=== PATIENT | male | born 1960 | race Caucasian/White ===

== ENCOUNTER 2019-05-15 23:37 | Emergency (ER) | payer BC ==
--- NOTE | 2019-05-15 23:54 | PDOC ---
History of Present Illness <Ashleigh Biswas - Last Filed: 05/16/19 00:20> - General History Source: Patient, Spouse Exam Limitations: No Limitations - History of Present Illness Initial Comments: 05/15/19 23:52 59yo M with PMH of LAURYN AJAY for R arm numbness and weakness. Per , pt went to take a shower and at approximately 2245 pt stated that he had numbness in his R arm and felt cold. He has not had symptoms like this before. states that she did not notice facial droop but noticed some slurring of words. He did not fall or lose consciousness. Was able to ambulate but felt unsteady. She called EMS. He only takes Nexium. Not on AC, no recent head injury or bleed, no recent surgeries other than colonoscopy a few months ago. No history of GI bleed , not on AC. PMD: PMH: see hpi PSH: appendectomy Meds: Nexium Allergies: nkda Social: 05/16/19 00:40 <Tianna Agarwal - Last Filed: 05/16/19 00:45> - General Chief Complaint: CVA/TIA Stated Complaint: RULE OUT CVA Time Seen by Provider: 05/15/19 23:39 Past History <Ashleigh Biswas - Last Filed: 05/16/19 00:20> <Tianna Agarwal - Last Filed: 05/16/19 00:45> - Past Medical History Allergies/Adverse Reactions: Allergies Allergy/AdvReac Type Severity Reaction Status Date / Time No Known Allergies Allergy Verified 05/15/19 23:58 Home Medications: Ambulatory Orders NK [No Known Home Medication] 05/15/19 Review of Systems - Review of Systems Constitutional: Yes: Chills HEENTM: No: Eye Pain, Double Vision Respiratory: No: Symptoms reported Cardiac (ROS): No: Symptoms Reported ABD/GI: No: Symptoms Reported : No: Symptoms Reported Musculoskeletal: Yes: See HPI Integumentary: No: Symptoms Reported Neurological: Yes: See HPI, Numbness, Weakness, Unsteady Gait. No: Headache, Dizziness <Tianna Agarwal - Last Filed: 05/16/19 00:45> *Physical Exam - Vital Signs Last Vital Signs Temp Pulse Resp BP Pulse Ox 98.6 F 77 18 160/95 100 05/15/19 23:40 05/15/19 23:40 05/15/19 23:40 05/15/19 23:40 05/15/19 23:40 <Ashleigh Biswas - Last Filed: 05/16/19 00:20> - Physical Exam General Appearance: Yes: Nourished, Appropriately Dressed. No: Apparent Distress HEENT: positive: EOMI, ALBERT, Pharynx Normal Neck: positive: Trachea midline, Supple. negative: Carotid bruit Respiratory/Chest: positive: Lungs Clear, Normal Breath Sounds Cardiovascular: positive: Regular Rhythm, Regular Rate, S1, S2. negative: Edema , JVD, Murmur, Systolic Murmur Vascular Pulses: Dorsalis-Pedis (R): 2+, Doralis-Pedis (L): 2+ Gastrointestinal/Abdominal: positive: Normal Bowel Sounds, Soft Musculoskeletal: negative: CVA Tenderness Extremity: positive: Normal Capillary Refill. negative: Pedal Edema, Swelling, Calf Tenderness Integumentary: positive: Normal Color, Dry, Warm Neurologic: positive: Fully Oriented, Alert, Normal Mood/Affect, Normal Response , Facial Droop, Sensory Deficit (R sided sensory deficit). negative: [facility] II- XII NML intact, Motor Strength 5/5 (R side drift against gravity), Finger to Nose (dysmetria on R side. ), Confused, Disoriented <Tianna Agarwal - Last Filed: 05/16/19 00:45> NIH Stroke Scale - Last Known Well Date/Time & Onset Date Last Known Well: 05/15/19 Time Last Known Well: 22:45 - Initial Evaluation Level of consciousness: Alert Ask patient the month and their age: Answers both correctly Ask patient to open & close eyes; make fist and let go: Obeys both correctly Best gaze (horizontal eye movement): Normal Visual field testing: No visual field loss Facial paresis (Show teeth/raise eyebrows/close eyes tight): Minor paralysis ( flattened nasolabial fold, asymmetry on smiling) Motor Function: Left Arm: Normal Motor Function: Right Arm: Drift Motor Function: Left Leg: Normal (extends leg 30 degrees for 5 seconds without drift) Motor Function: Right Leg: Drift Limb Ataxia: Present in two limbs Sensory(Use pinprick test arms,legs,trunk,face/side to side): Severe to total sensory loss Best language (Describe picture, name items, read sentences): No Aphasia Dysarthria (read several words): Mild to moderate slurring of words Extinction and Inattention: No abnormality - Total Score NIH Stroke Scale Score: 8 <AnyTianna - Last Filed: 05/16/19 00:45> Critical Care Time/MDM Note Total Critical Care Time: 30 Critical Care Statement: The care of this patient involved high complexity decision making to prevent further life threatening deterioration of the patient 's condition and/or to evaluate & treat vital organ system(s) failure or risk of failure. - Medical Decision Making Note: 05/15/19 23:54 59yo M with PMH of LAURYN MOSS for R arm numbness and weakness. Per , pt went to take a shower and at approximately 2245 pt stated that he had numbness in his R arm and felt cold. He has not had symptoms like this before. states that she did not notice facial droop but noticed some slurring of words. He did not fall or lose consciousness. Was able to ambulate. She called EMS. He only takes Nexium. Not on AC, no recent head injury or bleed, no recent surgeries other than colonoscopy a few months ago. No history of GI bleed, not on AC. Vitals: wnl PE: R limb ataxia, hemisensory loss, mild hemiplegia, facial droop to R side , slight slurring of speech. ddx includes but not limited to hemorrhagic v. ischemic stroke, tia, mass/ malignancy, Lyme Code lee initiated. Pt taken straight to CT. NIHSS 7-8. Ct shows intracranial bleed at thalamus as read by radiology. HOB at 30 degrees. Not candidate for tpa. BP 160s systolic, will start nicardepine drip. Will push 10mg labetalol to lower bp. Called [facility] transfer center. Accepted by Dr. Somers (neurology). Will be ED-ED transfer. Patient and agreed to transfer. 05/16/19 00:36 <Tianna Agarwal - Last Filed: 05/16/19 00:45> *DC/Admit/Observation/Transfer - Transfer to Acute Care Facility Receiving Facility: [facility] <Ashleigh Biswas - Last Filed: 05/16/19 00:20> <Tianna Agarwal - Last Filed: 05/16/19 00:45> Diagnosis at time of Disposition: Hemorrhagic stroke - Discharge Dispostion Disposition: TRANSFER ACUTE CARE/OTHER HOSP - Referrals Referrals: Roverto Hummel [Primary Care Provider] -
[2019-05-15 23:59] VITALS: BMI 27.1
[2019-05-16] MEDS ORDERED: NICARDIPINE 25 MG in DEXTROSE 5%-WATER - 240 ML IVPB SCH (00:15)
[2019-05-16] MEDS ORDERED: niCARdipine HCL 25 MG/10 ML AMPUL IVPB ONE (00:28)
[2019-05-16] MEDS ORDERED: LABETALOL HCL 5 MG/1 ML (100MG/20 ML VIAL) IVPUSH ONE (00:33)
--- NOTE | 2019-05-16 00:33 | PDOC ---
Documentation entered by Apolinar Givens SCRIBE, acting as scribe for Ashleigh Biswas MD. Ashleigh Biswas MD: This documentation has been prepared by the Chon patel Xhesika, SCRIBE, under my direction and personally reviewed by me in its entirety. I confirm that the documentation accurately reflects all work, treatment, procedures, and medical decision making performed by me. Attending Attestation - Resident Resident Name: Tianna Agarwal - ED Attending Attestation I have performed the following: I have examined & evaluated the patient, The case was reviewed & discussed with the resident, I agree w/resident's findings & plan - HPI HPI: 05/16/19 00:25 The patient is a 59 year old male with no significant medical history who present to the ED BIBA via EMS with acute onset of right upper and lower extremity numbness/tingling and weakness with gait instability COMPLEX CASE MANAGER. As per at bedside, the patient was in the shower around 10:45pm when the patient called wifes name saying he is endorsing R arm numbness/tingling and slurred speech. The states she took him out the shower and while she was walking him to the couch, he stumbled and said his R leg is numb. As per , the patient has not had symptoms like this before. no medical problems no family h/o stroke/CAD no tobacco or ETOH or drug use. Allergies: NKA PCP: Roverto Gonzalez 05/16/19 00:36 - Physicial Exam PE: 05/16/19 00:26 General: Well appearing, awake and alert, NAD. HEENT: NCAT, PERRL, EOMI, clear conjunctiva, anicteric, moist mucus membranes, clear oropharynx, no oral lesions.. Neck: neck supple, FROM, no carotid bruit Resp: CTAB, normal and even respirations, no respiratory distress CVS: RRR, no murmurs, 2+ peripheral pulses throughout, no peripheral edema Abdomen: soft, NTND, no peritoneal signs. Back: nontender, normal inspection and ROM MSK: no edema, LYNN x4, ROM intact. No clubbing or cyanosis. normal bulk and tone. Skin: warm and well perfused, cap refill <2 sec, normal color Neuro: Alert, oriented to person time and place. No carotid bruit, CN II-IV intact, CN V 5/5 masseters, V1-3 intact. tongue midline, b/l shoulder shrung 5/5. unable to perform bilateral finger to nose and heel to joaquin 2/2 weakness. Speech clear. no aphasia/ mild slurring of speech. (+) slight R lower droop. (+) 4/5 RLE. (+) 4/5 RUE with pronator drift. Unable to perform finger to nose. RLE 4/5 strength. Insensate in RUE and RLE 05/16/19 00:27 05/16/19 00:36 - Medical Decision Making 05/16/19 00:31 Abida rosa was immediately called, as patient's last normal was 10:45 PM while getting out of the shower. He has acute deficits including right lower facial droop, right upper and lower extremity drift and weakness. Completely insensate to pinprick in his right upper and lower extremity. mild slurring of speech NIHSS [address] emergently performed which shows a left hemorrhagic thalamic stroke consistent with his focal findings. No indication for TPA with hemorrhagic stroke. maintain hemodynamics, SBP currently at 160, goal for SBP <140 and planned for nicardipine. however ambulance here already at 00:33. will give labetalol 10mg x1 accepted to [facility] for NSG/Neuro for hemorrhagic stroke. Dr Somers accepted transfer 05/16/19 00:33 05/16/19 00:35 NIH Stroke Scale - Last Known Well Date/Time & Onset Date Last Known Well: 05/15/19 Time Last Known Well: 22:45 - Initial Evaluation Level of consciousness: Alert Ask patient the month and their age: Answers both correctly Ask patient to open & close eyes; make fist and let go: Obeys both correctly Best gaze (horizontal eye movement): Normal Visual field testing: No visual field loss Facial paresis (Show teeth/raise eyebrows/close eyes tight): Minor paralysis ( flattened nasolabial fold, asymmetry on smiling) Motor Function: Left Arm: Normal Motor Function: Right Arm: Drift Motor Function: Left Leg: Normal (extends leg 30 degrees for 5 seconds without drift) Motor Function: Right Leg: Drift Limb Ataxia: Present in one limb Sensory(Use pinprick test arms,legs,trunk,face/side to side): Severe to total sensory loss Best language (Describe picture, name items, read sentences): No Aphasia Dysarthria (read several words): Mild to moderate slurring of words Extinction and Inattention: No abnormality - Total Score NIH Stroke Scale Score: 7
[2019-05-16] MEDS ORDERED: LABETALOL HCL 5 MG/1 ML (200MG/40ML VIAL) IVPB ONE (00:45)
[2019-05-16 00:56] LABS: INR 0.97 (0.83-1.09); PROTHROMBIN TIME (PATIENT) 11.5 SEC (9.7-13.0)
[2019-05-16 00:58] LABS: ACTIVATED PTT 36.3 SECONDS (25.2-36.5)
[2019-05-16 01:05] LABS: BASO % 1.1 % (0-2.0); EOS % 4.1 % (0-4.5); HEMATOCRIT 42.7 % (35.4-49); HEMOGLOBIN 13.9 GM/dL (11.7-16.9); LYMPH % 30.9 % (8-40); MCH 27.1 pg (25.7-33.7); MCHC 32.6 g/dl (32.0-35.9); MEAN PLT VOLUME 8.5 fl (7.5-11.1); MONO % 6.3 % (3.8-10.2); NEUT % 57.6 % (42.8-82.8); PLATELET COUNT 247 K/MM3 (134-434); RBC 5.15 M/mm3 (4.00-5.60); RDW 15.1 % (11.9-15.9); WHITE BLOOD COUNT 6.9 K/mm3 (4.0-10.0)
[2019-05-16 01:10] LABS: ALBUMIN 3.7 g/dl (3.4-5.0); ALK PHOS 92 U/L (45-117); ANION GAP 8 MMOL/L (8-16); BILIRUBIN,TOTAL 0.4 mg/dL (0.2-1); BLOOD UREA NITROGEN 20.3 mg/dL (7-18); CALCIUM 8.7 mg/dL (8.5-10.1); CHLORIDE 105 mmol/L (98-107); CHOLESTEROL 201 mg/dL (50-200); CO2 28 mmol/L (21-32); CREATININE 1.2 mg/dL (0.55-1.3); GLUCOSE,RANDOM 123 mg/dL (74-106); HDL CHOLESTEROL 31 mg/dL (40-60); POTASSIUM 4.1 mmol/L (3.5-5.1); SGOT/AST 16 U/L (15-37); SGPT/ALT 35 U/L (13-61); SODIUM 140 mmol/L (136-145); TOT PROT 6.8 g/dl (6.4-8.2); TRIGLYCERIDES 460 mg/dL (0-150)
[2019-05-16 01:23] LABS: PH,URINE 5.5 (5.0-8.0); URINE APPEARANCE CLEAR; URINE BILIRUBIN NEGATIVE (NEGATIVE); URINE COLOR YELLOW; URINE GLUCOSE (UA) NEGATIVE (NEGATIVE); URINE KETONE NEGATIVE (NEGATIVE); URINE LEUK ESTERASE NEGATIVE (NEGATIVE); URINE NITRITE NEGATIVE (NEGATIVE); URINE PROTEIN TRACE (NEGATIVE); URINE UROBILINOGEN 0.2 mg/dL (0.2-1.0)
[2019-05-16 01:57] VITALS: TEMP 98.4
--- NOTE | 2019-05-16 13:31 | EKG ---
Test Reason : Blood Pressure : / mmHG Vent. Rate : 076 BPM Atrial Rate : 076 BPM P-R Int : 150 ms QRS Dur : 102 ms QT Int : 358 ms P-R-T Axes : 040 -27 042 degrees QTc Int : 402 ms POOR DATA QUALITY, INTERPRETATION MAY BE ADVERSELY AFFECTED NORMAL SINUS RHYTHM POOR R WAVE PROGRESSION NO PREVIOUS ECGS AVAILABLE Confirmed by ERIC FORD MD ([id number]) on 05/16/2019 1:31:00 PM Referred By: Confirmed By:ERIC FORD MD
== END 2019-05-16 01:05 | disposition short-term general hospital (02) ==
LOC: JER 23:37
PROC: 3E033GC Introduction of Other Therapeutic Substance into Peripheral Vein, Percutaneous Approach (ICD-10-PCS; principal; 2019-05-15)
PROC: 3E033GC Introduction of Other Therapeutic Substance into Peripheral Vein, Percutaneous Approach (ICD-10-PCS; 2019-05-15)
DX: I61.9 Nontraumatic intracerebral hemorrhage, unspecified (principal); K21.9 Gastro-esophageal reflux disease without esophagitis
CPT/HCPCS: 36415; 70450-TC; 80053; 81003; 82465; 82550; 83718; 83721; 84478; 84484; 85025; 85610; 85730; 86850; 86900; 86901; 93005; 93010; 99285-25